=== PATIENT | female | born 1980 | race Caucasian/White ===

== ENCOUNTER 2019-11-06 09:12 | Day surgery (SDC) | payer OTHER ==
[~2019-11-06] VITALS: Ht 175.3 cm; Wt 111.4 kg
[2019-11-06] MEDS ORDERED: BENTYL 10MG10 MG/CAP PO (09:40)
[2019-11-06] MEDS ORDERED: PROTONIX 40MG T40 MG PO (09:40)
[2019-11-06] MEDS ORDERED: EMGALITY120 MG/1 M SQ (09:41)
[2019-11-06] MEDS ORDERED: CARAFATE 1GM1 G PO (09:42)
[2019-11-06] MEDS ORDERED: VOLTAREN 50MG T50 MG PO (09:43)
[2019-11-06] MEDS ORDERED: ZOMIG5 MG PO (09:44)
[2019-11-06 09:51] VITALS: BP 154/99; PULSE 87; TEMP 97.6
[2019-11-06 10:40] VITALS: BP 124/104; PULSE 85
--- NOTE | 2019-11-06 10:40 | NUR ---
Patient returns to [facility] [address] per cart and assisted to recliner with two person assist. IV fluids infusing and site is free of redness. Temp 96.9 and room air sats 92%. Call light in reach.
[2019-11-06 10:55] VITALS: BP 135/84; PULSE 86
--- NOTE | 2019-11-06 10:55 | NUR ---
Dr. Phillips in the room talking to the patient. Tolerated pudding and Cranberry juice. IV continues to infuse.
--- NOTE | 2019-11-06 11:05 | NUR ---
IV discontinued and site is free or redness. Given dismissal instructions and voices understanding of these and follow up in Dr. Phillips's office in four weeks and instructed that the office will contact you with date and time.
[2019-11-06 11:08] VITALS: BP 124/104; PULSE 94
--- NOTE | 2019-11-06 11:10 | NUR ---
Patient dresses self and instructions signed.
--- NOTE | 2019-11-06 11:15 | NUR ---
Patient dismissed to home driven by son and taken to [facility] per wheelchair by Adela PONCE and assisted into van with dismissal instructions in hand.
== END 2019-11-06 11:15 | disposition home or self-care (01) ==
LOC: SDCO 09:12
DX: K21.9 Gastro-esophageal reflux disease without esophagitis (principal); K90.0 Celiac disease; Z79.899 Other long term (current) drug therapy
CPT/HCPCS: J2250; J3010; J7030